=== PATIENT | male | born 1995 | race African-American/Black ===

== ENCOUNTER 2019-04-07 10:48 | Emergency (ER) | payer OTHER ==
[~2019-04-07] VITALS: Ht 182.9 cm; Wt 74.8 kg
[2019-04-07] MEDS ORDERED: NAPROSYN500 MG PO (11:46)
[2019-04-07 12:17] VITALS: BP 121/67
== END 2019-04-07 12:13 | disposition home or self-care (01) ==
LOC: ER 10:48
DX: S93.501A Unspecified sprain of right great toe, initial encounter (principal); W22.8XXA Striking against or struck by other objects, initial encounter; Y93.89 Activity, other specified; Y92.89 Other specified places as the place of occurrence of the external cause; Y99.8 Other external cause status